=== PATIENT | female | born 1935 | race African-American/Black ===

== ENCOUNTER → 2016-09-15 | Outpatient (CLI) | payer OTHER ==
[~2016-09-15] MED LIST: ACEBUTOLOL HCL200 MG PO; ANTIVERT25 MG PO; DISOPYRAMIDE PO; HYDROCHLOROTHIA25 M2 GT; KLOR-CON 1010 MEQ PO; NORVASC5 MG PO; PANTOPRAZOLE SO40 M1 PO; XALATAN2.5 ML OPHTHALMIC; ZOFRAN4 MG PO
--- NOTE | ~2016-09-15 | 2DMMODE ---
[facility] [place] [address] [place] [address] 2 D/M-MODE ECHOCARDIOGRAM Name: NAREN WU Room #: REG [facility].#: [id number] Admission: 09/15/16 Attend Phys: Winston Grant MD Discharge: Date of : 35 Date of Service: 09/15/16 1634 Report #: [id number] THIS REPORT FOR: //name// APPROVED REPORT EXAM: Comprehensive 2D, Doppler, and color-flow Echocardiogram Patient Location: Out-Patient Blood Pressure: 130/82 mmHg HR: 59 bpm Rhythm: NSR Other Information Study Quality: AdequateFair Indications Abnormal ECG History of Vtach, syncope, CAD 2D Dimensions RVDd: 29.63 mm LVEF(%): 56.78 (>50%) IVSd: 10.18 (7-11mm) LVOT Diam: 19.52 (18-24mm) LVDd: 43.17 mm PWd: 9.08 (7-11mm) Ascending Aorta: 31.34 mm LVDs: 30.43 (25-40mm) Aortic Root: 30.00 mm Hernadez's LVEF: 56.78 % Volumes Left Atrial Volume (Systole) Single Plane 4CH: 43.40 mL Single Plane 2CH: 48.52 mL LA ESV Index: 26.00 mL/m2 Aortic Valve AoV Peak Prateek.: 1.34 m/s AO Peak Gr.: 7.16 mmHg LV Max P.24 mmHg LV Max: 0.90 m/s Mitral Valve MV PHT: 48.23 ms MV E Max Prateek.: 0.82 m/s E/A Ratio: 0.9 MV A Prateek.: 0.89 m/s MV Decel. Time: 166.30 ms [facility] [address] [place] [address] 2 D/M-MODE ECHOCARDIOGRAM Name: NAREN WU Room #: REG [facility].#: [id number] Admission: 09/15/16 Attend Phys: Winston Grant MD Discharge: Date of : 35 Date of Service: 09/15/16 1634 Report #: [id number] TDI E/Lateral E': 13.00 E/Medial E': 16.00 Pulmonary Valve PV Peak Prateek.: 0.56 m/s PV Peak Gr.: 1.25 mmHg Tricuspid Valve TR Peak Prateek.: 2.43 m/s RAP Estimate: 5.00 mmHg TR Peak Gr.: 23.71 mmHg RVSP: 29.00 mmHg Left Ventricle The left ventricle is normal size. There is normal LV segmental wall motion. There is normal left ventricular wall thickness. The left ventricular systolic function is normal. LVEF is 55%. Grade I - abnormal relaxation pattern. Right Ventricle The right ventricle is normal size. The right ventricular systolic function is normal. Atria The left atrium size is normal. The right atrium size is normal. Aortic Valve Aortic valve leaflets are mildly thickened. No aortic regurgitation is present. There is no aortic valvular stenosis. Mitral Valve Mitral valve leaflets are mildly thickened. Mild mitral regurgitation. Tricuspid Valve The tricuspid valve is normal in structure. There is mild to moderate tricuspid regurgitation. The right atrial pressure is estimated at 5 mmHg. Estimated PAP of 29mmHg. Pulmonic Valve The pulmonary valve is normal in structure. Trace pulmonic regurgitation. Great Vessels The aortic root is normal in size. The ascending aorta is normal in size. IVC is normal in size and collapses >50% with inspiration. [facility] [address] [place] [address] 2 D/M-MODE ECHOCARDIOGRAM Name: NAREN WU Room #: REG [facility].#: [id number] Admission: 09/15/16 Attend Phys: Winston Grant MD Discharge: Date of : 35 Date of Service: 09/15/16 1634 Report #: [id number] Pericardium There is no pericardial effusion. <Conclusion> The left ventricular systolic function is normal. LVEF is 55%. Aortic valve leaflets are mildly thickened. Mild mitral regurgitation. <ELECTRONICALLY SIGNED> By: Winston Grant MD, [facility] 09/15/16 1634 1634 1634 Winston Grant MD, FACC /INF
== END ==
LOC: CV 07:49
DX: R94.31 Abnormal electrocardiogram [ECG] [EKG] (principal); I25.10 Atherosclerotic heart disease of native coronary artery without angina pectoris

== ENCOUNTER → 2016-10-07 | Outpatient (CLI) | payer OTHER ==
[~2016-10-07] VITALS: Ht 157.5 cm; Wt 86.2 kg
[~2016-10-07] MED LIST changes: +LISINOPRIL10 MG PO
--- NOTE | ~2016-10-07 | P ---
[facility] [place] [address] [place] [address] PROCEDURE REPORT Name: NAREN WU Room #: REG [facility]#: [id number] Admission: 10/07/16 Attend Phys: Joe Ramirez MD Discharge: Date of : 35 Report #: [id number] THIS REPORT FOR: //name// CC: Joe Reyes MD BRIEF HISTORY: The patient is an 81-year-old woman who has had a chronic cough and chronic hoarseness. She reportedly does have some sinusitis. She has been on Prilosec in the past and then pantoprazole and more recently 40 mg a pantoprazole b.i.d. since this past May. She reports there has been no change in her cough, hoarseness and production of white frothy material. She denies classic burning symptoms. PREOPERATIVE DIAGNOSES: Reflux, cough, hoarseness and intermittent solid food dysphagia. POSTOPERATIVE DIAGNOSES: 1. Xlzc-bl-oohyxeic diffuse erythematous gastritis, without ulceration. 2. Small amount of retained bile in the stomach. 3. Solid food dysphagia. MEDICATIONS: Deep sedation with propofol per anesthesia. SPECIMEN: Biopsies of gastritis. ESTIMATED BLOOD LOSS: 3 mL. PROCEDURE: EGD with biopsy, Abraham dilation. FINDINGS: Prior to propofol sedation, the procedure of upper endoscopy discussed with the patient as well as potential risks and its complications. She indicates she understands and desires to proceed. DESCRIPTION OF PROCEDURE: With the patient in the left lateral decubitus position, the Fublesi video endoscope was inserted in the cervical esophagus under direct vision without difficulty. Examination of this organ through its entire length revealed normal esophageal mucosa down to the squamocolumnar junction. The squamocolumnar junction was intact. There was no evidence of ulcers or Mantilla mucosa. Also, a hiatus hernia was not seen. In addition, she has had solid food dysphagia. I did not see an obvious stricture ring, but a mild ring or stricture may be present and overlooked. Scope was advanced in the stomach, which was examined on end views as well as retroflexed views. There was an erythematous antral gastritis. The mucosa was intact and no ulcers or significant erosive changes. There was no evidence of outlet obstruction with [facility] [address] [place] [address] PROCEDURE REPORT Name: NAREN WU Room #: REG [facility].#: [id number] Admission: 10/07/16 Attend Phys: Joe Ramirez MD Discharge: Date of : 35 Report #: [id number] retained solids or liquids in the stomach. Upon retroflexion, the proximal stomach was unremarkable. No mass lesions were seen. The pylorus, duodenal bulb and postbulbar duodenal sweep were inspected and noted to be within normal limits. At that point, the scope was slowly withdrawn and careful circumferential views confirmed the above findings. In addition, if I did not mention, there was some bile in the stomach. Following the procedure, the patient was dilated with passage of 52-Ecuadorean Abraham dilator. INSTRUCTIONS TO THE PATIENT AND FAMILY AT THE TIME OF DISCHARGE: She reports hoarseness and cough. She has been on twice daily PPI and symptoms have persisted. There is a small amount of bile in the stomach and bile reflux in addition to gastric contents, potentially could contribute to her symptoms. Therefore, at this point in time, we will have her continue her PPI and also place her on sucralfate 1 gram 4 times daily. I would suggest a trial of at least 2-3 months to see if it had any impact on her symptoms. If her symptoms do not resolve and she continues to report that PPIs are not helpful, PPIs could be discontinued. Another option would be to withdraw her from PPIs and acid reducers and do a 24-hour pH study off of medication to see if reflux is the problem. If she does have reflux, then that may justify continued use of a proton pump inhibitor. If it is negative, then further use of a continuous PPI may not be helpful. She will return to see me if symptoms do not improve. <ELECTRONICALLY SIGNED> By: Joe Ramirez MD 10/07/16 1714 1120 [id number] Joe Ramirez MD /nt
== END | disposition home or self-care (01) ==
LOC: GI 08:31
DX: K29.70 Gastritis, unspecified, without bleeding (principal); K31.89 Other diseases of stomach and duodenum; I10 Essential (primary) hypertension; K21.9 Gastro-esophageal reflux disease without esophagitis; M19.90 Unspecified osteoarthritis, unspecified site; H40.9 Unspecified glaucoma; Z90.711 Acquired absence of uterus with remaining cervical stump; Z98.890 Other specified postprocedural states
CPT/HCPCS: 62110; 62900